=== PATIENT | male | born 1990 | race Caucasian/White ===

== ENCOUNTER 2018-04-23 14:35 | Emergency (ER) | payer BC, OTHER ==
[2018-04-23 14:49] VITALS: BP 148/68
[2018-04-23] MEDS ORDERED: Orphenadrine 100 MG Tab.ER PO STA (15:17)
--- NOTE | 2018-04-23 15:24 | EDM.PDOC ---
ED HPI GENERAL MEDICAL PROBLEM - General Chief Complaint: Back Pain or Injury Stated Complaint: BACK PAIN Time Seen by Provider: 04/23/18 14:56 Source of Information: Reports: Patient, RN Notes Reviewed, Other (Friend) History Limitations: Reports: No Limitations - History of Present Illness INITIAL COMMENTS - FREE TEXT/NARRATIVE: The patient states that he was shoveling snow this past 04/21/2018. He states that he did not have any problems at the time, then went to work yesterday, and progressively developed lower right back pain. He states when he got home he used his TENS unit, but today his pain was worse. He went to a meeting at work, but had to leave work due to the pain. He consider going to a chiropractor today, but felt that his pain was too excessive even to see the chiropractor, therefore came here. No history of trauma to the back. The patient denies having any urinary symptoms. He denies gross hematuria. No recent fever. The patient reports similar symptoms in the past, around 1.5-2 years ago, after helping someone move. After that resolved, he had the same pain about 3 weeks later, after swinging a golf club and hitting the ground. The patient has been to a chiropractor in the past, but has never had a medical evaluation of his back pain. He states that he had previously been prescribed muscle relaxant, likely Flexeril, but took a single tablet, it did not work, and he has never taken any since. The patient reports that during a prior episode of his back pain, he occasionally had pain going down his anterior right thigh, but he has not experienced that this time. The patient states that he took both Tylenol and ibuprofen, most recently around 12:30 this afternoon. The patient does not have a PCP. 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 Right Lower Back Pain Score (Numeric/FACES): 9 - Related Data Allergies Allergy/AdvReac Type Severity Reaction Status Date / Time No Known Allergies Allergy Verified 12/03/15 21:55 Home Meds: Home Meds Orphenadrine [Norflex] 1 tab PO Q12H PRN #20 tab.er 04/23/18 [Rx] Past Medical History HEENT History: Reports: Impaired Vision Other HEENT History: wears glasses Respiratory History: Reports: Sleep Apnea (noncompliant with CPAP) Musculoskeletal History: Reports: Fracture (left tib/fib) Endocrine/Metabolic History: Reports: Obesity/BMI 30+ - Past Surgical History Musculoskeletal Surgical History: Reports: Other (See Below) (Left knee bone graft. Right ankle surgery.) Social & Family History - Tobacco Use Smoking Status *Q: Current Every Day Smoker Tobacco Use Within Last Twelve Months: Smokeless Tobacco (Chew 1/2 can/day) Years of Tobacco use: 7 Packs/Tins Daily: 1 Packs/Tins Daily Comment: Down from 2 ppd - Caffeine Use Caffeine Use: Reports: Coffee, Energy Drinks - Alcohol Use Alcohol Use History: Yes Alcohol Use Frequency: Binges (to excess on weekends) - Recreational Drug Use Recreational Drug Use: Yes Drug Use in Last 12 Months: No Recreational Drug Type: Reports: Marijuana/Hashish (last smoked in 2012) - Living Situation & Occupation Living situation: Reports: Single, Other (Roomate) Occupation: Employed ([employer]) ED ROS GENERAL - Review of Systems Review Of Systems: ROS reveals no pertinent complaints other than HPI. ED EXAM,LOWER BACK PAIN/INJURY - Physical Exam Exam: See Below Exam Limited By: No Limitations General Appearance: Alert, WD/WN, No Apparent Distress Eye Exam: Bilateral Eye: EOMI, Normal Inspection Ears: Normal External Exam, Hearing Grossly Normal Nose: Normal Inspection Throat/Mouth: Normal Inspection, Normal Lips, Normal Voice, No Airway Compromise Head: Atraumatic, Normocephalic Neck: Normal Inspection, Full Range of Motion Respiratory/Chest: No Respiratory Distress, Lungs Clear, Normal Breath Sounds, No Accessory Muscle Use Cardiovascular: Normal Peripheral Pulses, Regular Rate, Rhythm, No Gallop, No JVD, No Murmur, No Rub GI/Abdominal: Normal Bowel Sounds, Soft, Non-Tender, No Organomegaly, No Distention, No Abnormal Bruit, No Mass, Other (Obese) (Male) Exam: Deferred Rectal (Males) Exam: Deferred Back Exam: Normal Inspection, Other (No visible abnormality to the patient's back, such as swelling, erythema, ecchymosis, or abrasion. No tenderness to palpation to the area of pain in the lower right back. The patient is able to flex his spine to approximately 20, limited only by lower back pain, without radiation. He is able to extend his back 0. He is able to tilt the spine to the left about 30, to the right about 20. He is able to twist the spine to about 25 bilaterally. Unilateral knee bend is normal bilaterally.). No: Paraspinal Tenderness, Vertebral Tenderness Extremities: Normal Inspection, Normal Range of Motion, Normal Capillary Refill Neurological: Alert, Normal Dorsiflexion, Normal Plantar Flexion, No Motor/ Sensory Deficits, Oriented x 3 Psychiatric: Normal Affect Skin Exam: Warm, Dry, Intact, Normal Color, No Rash Course - Vital Signs Last Recorded V/S: Last Vital Signs Temp 36.7 C 04/23/18 14:46 Pulse 91 04/23/18 14:46 Resp 19 04/23/18 14:46 BP 148/68 H 04/23/18 14:46 Pulse Ox 98 04/23/18 14:46 - Orders/Labs/Meds Meds: Medications Discontinued Medications Generic Name Dose Route Start Last Admin Trade Name Freq PRN Reason Stop Dose Admin Orphenadrine Citrate 100 mg 04/23/18 15:17 Norflex PO 04/23/18 15:18 ONETIME STA - Re-Assessments/Exams Free Text/Narrative Re-Assessment/Exam: 04/23/18 15:17 Based on the patient's history and physical examination, he is suffering from a muscle spasm to his lower right back. I do not suspect a herniated intervertebral disc. I will start the patient on oral Norflex here in the ED, and send in a prescription for the same. In addition, I would like the patient to take [id number] ibuprofen, although not until this evening, since he recently took some. I'm recommending the patient apply heat, and, given the nature of this particular injury, chiropractic may be of benefit, as well. I'm recommending that he stay active, particularly with swimming, or walking if swimming is not available. He may continue to use his TENS unit. I will refer him to Dr. Graham, should his symptoms not improve. The patient does not require a note for work, as he is already off for the next 7 days. Departure - Departure Time of Disposition: 15:19 Disposition: Home, Self-Care 01 Condition: Good Clinical Impression: Back muscle spasm - Discharge Information *PRESCRIPTION DRUG MONITORING PROGRAM REVIEWED*: Not Applicable *COPY OF PRESCRIPTION DRUG MONITORING REPORT IN PATIENT MONIKA: Not Applicable Prescriptions: Orphenadrine [Norflex] 1 tab PO Q12H PRN #20 tab.er PRN Reason: Muscle Spasm Instructions: Muscle Cramps and Spasms, [id number] Referrals: Tea Graham MD [Physician] - Forms: ED Department Discharge Additional Instructions: You were seen in the emergency room for lower right back pain that developed after shoveling snow. Based on your history and physical examination, your back pain is due to a muscle spasm. You have been started on the muscle relaxant Norflex. A prescription for Norflex has been sent to the [facility], located at [address] [place] [address]. Take one tablet of Norflex every 12 hours, starting tomorrow morning, 04/24/2018, as prescribed. In addition to Norflex, you may also take [id number] ibuprofen, 3-4 tablets (600-800 mg) every 8 hours, with food, starting this evening, as needed for back pain. It is important that you stay active. Swimming is best, but walking is good as well. Given the nature of your injury, chiropractic may be of benefit. You may also find relief with heat, such as with a warm bath or heating pad. Massage may be of some benefit. You may continue to use your TENS unit. Follow-up with Dr. Tea Graham, or one of the other providers in the clinic, if your back pain does not improve. If any other problems, please do not hesitate to return to the ER.
== END 2018-04-23 15:30 | disposition home or self-care (01) ==
LOC: JD.ED 14:35
DX: M62.830 Muscle spasm of back (principal); F17.210 Nicotine dependence, cigarettes, uncomplicated
CPT/HCPCS: 99283; A9270

== ENCOUNTER 2023-07-04 10:11 | Emergency (ER) | payer BC ==
[2023-07-04 11:44] LABS: BASOPHILS PERCENT AUTO 0.2 % (0.0-1.0); EOSINOPHILS PERCENT AUTO 0.1 % (0.0-6.0); HEMATOCRIT 46.6 % (42.0-52.0); HEMOGLOBIN 16.3 gm/dl (14.0-18.0); IMMATURE GRAN ABSOLUTE AUTO 0.04 K/mm3 (0.00-0.05); IMMATURE GRAN PERCENT AUTO 0.3 % (0.0-0.4); LYMPHOCYTES ABSOLUTE AUTO 2.1 K/mm3 (1.0-4.8); LYMPHOCYTES PERCENT AUTO 15.6 % (24.0-44.0); MEAN CORPUSCULAR HEMOGLOBIN 29.4 pg (28.0-32.0); MEAN PLATELET VOLUME 8.8 fl (9.4-12.4); MONOCYTES ABSOLUTE AUTO 1.1 K/mm3 (0.0-0.8); MONOCYTES PERCENT AUTO 7.8 % (0.0-8.0); NEUTROPHILS ABSOLUTE AUTO 10.2 K/mm3 (1.8-7.7); PLATELET COUNT,PLT 231 K/mm3 (150-400); RED BLOOD CELL COUNT 5.55 M/mm3 (4.52-5.90); WHITE BLOOD CELL COUNT,WBC 13.41 K/mm3 (3.9-11.3)
[2023-07-04] MEDS: Iopamidol 612 MG/ML 100 ML Bottle IVPUSH ONE (12:24)
[2023-07-04] MEDS: Sodium Chloride 0.9% 10 ML Syringe FLUSH PRN (12:24)
[2023-07-04 12:35] LABS: A/G RATIO 0.9 (1-2); ALBUMIN 3.5 g/dl (3.4-5.0); ANION GAP 16.6 (5-15); BILIRUBIN TOTAL 0.9 mg/dL (0.2-1.0); BUN/CREATININE RATIO 12.5 (14-18); CALCIUM 8.7 mg/dL (8.5-10.1); CREATININE 1.2 mg/dL (0.7-1.3); EST CRCL DRUG DOSING (CG) 109.5 mL/min; POTASSIUM,K 3.6 mEq/L (3.5-5.1); PROTEIN TOTAL,TP 7.6 g/dl (6.4-8.2)
[2023-07-04] MEDS: Sodium Chloride 0.9% 1,000 ML IV ONE (13:31)
[2023-07-04] MEDS: methylPREDNISolone Sodium Succinate 125 MG/2 ML SDV IM ONE (14:02)
[2023-07-04] MEDS: methylPREDNISolone Sodium Succinate 125 MG/2 ML SDV IVPUSH ONE (14:03)
[2023-07-04] MEDS: Morphine 4 MG/ML Syringe IVPUSH ONE (15:21)
[2023-07-04 21:06] VITALS: BP 110/68; PULSE 92
== END 2023-07-04 15:30 | disposition home or self-care (01) ==
LOC: JD.ED 10:11
DX: J02.9 Acute pharyngitis, unspecified (principal); G89.18 Other acute postprocedural pain
CPT/HCPCS: 36415; 70491; 71046; 80053; 85025; 96361; 96374; 96375; 99284; J2270; J2930; J3490; J7030; Q9967; 99283